=== PATIENT | female | born 1985 | race Hispanic/Latino ===

== ENCOUNTER 2024-05-09 10:58 | Day surgery (SDC) | payer BC ==
[2024-05-09] VITALS (14 sets, daily range): BP systolic 105–127; BP diastolic 55–78; PULSE 67–92; RESP 11–19
[~2024-05-09] VITALS: Ht 167.6 cm; Wt 86.2 kg
[2024-05-09] MEDS: 0.9%NACL 1000ML 1,000 ML IV ONE (12:03)
[2024-05-09] MEDS ORDERED: PROPOFOL 10 MG/ML 20ML VIAL IV ONE ×2 (12:24→12:40)
== END 2024-05-09 14:10 | disposition home or self-care (01) ==
LOC: DAH 10:58 → ENDO 10:58
PROVIDERS: ATTEND Internal Medicine Gastroenterology
DX: D50.9 Iron deficiency anemia, unspecified (principal); R93.3 Abnormal findings on diagnostic imaging of other parts of digestive tract; K29.50 Unspecified chronic gastritis without bleeding; K21.9 Gastro-esophageal reflux disease without esophagitis; K52.3 Indeterminate colitis; R12 Heartburn; K80.20 Calculus of gallbladder without cholecystitis without obstruction; K44.9 Diaphragmatic hernia without obstruction or gangrene; Z79.899 Other long term (current) drug therapy
CPT/HCPCS: 81025; 43259; 43239; J7030; J2704 ×2; A4620; A4215; J3490